=== PATIENT | male | born 1955 | race Caucasian/White ===

== ENCOUNTER 2021-11-29 13:25 | Inpatient (IN) | payer BC ==
[2021-11-29] MEDS ORDERED: Loratadine 10 MG TAB PO PRN (13:51)
[2021-11-29] MEDS ORDERED: Senokot S 8.6-50 MG TAB PO PRN (13:51)
[2021-11-29] MEDS ORDERED: Ondansetron ODT 4 MG TAB PO PRN (13:51)
[2021-11-29] MEDS: METHYLPHENIDATE 20 MG PO SCH ×2 (15:53→21:28)
[2021-11-29] MEDS ORDERED: Propranolol HCl LA 60 MG CAP PO SCH (18:00)
[2021-11-29] MEDS ORDERED: Propranolol HCl LA 80 MG CAP PO SCH (18:00)
[2021-11-29] MEDS: Propranolol HCl LA 80 MG CAP PO SCH (18:20)
[2021-11-29] MEDS: Baclofen 10 MG TAB PO SCH (21:27)
[2021-11-29] MEDS: Famotidine 20 MG TAB PO SCH (21:27)
[2021-11-29] MEDS: Dutasteride 0.5 MG CAP PO SCH (21:27)
[2021-11-29] MEDS: Atorvastatin Calcium 40 MG TAB PO SCH (21:27)
[2021-11-29] MEDS ORDERED: Ondansetron ODT 4 MG TAB SL PRN (23:00)
[2021-11-30 01:00] LABS: SARS-CoV-2 PCR by NAA Not Detected (NotDetected)
[2021-11-30] MEDS: Enoxaparin Sodium 40 MG/0.4 ML SYRINGE SC SCH (08:07)
[2021-11-30] MEDS: Saccharomyces boulardii 250 MG CAP PO SCH (08:09)
[2021-11-30] MEDS: Potassium Chloride 10 MEQ TAB PO SCH (08:09)
[2021-11-30] MEDS: Hydrochlorothiazide 25 MG TAB PO SCH (08:09)
[2021-11-30] MEDS: Famotidine 20 MG TAB PO SCH ×2 (08:09→21:38)
[2021-11-30] MEDS: Tamsulosin HCl 0.4 MG CAP PO SCH (08:09)
[2021-11-30] MEDS: Baclofen 10 MG TAB PO SCH ×2 (08:10→21:38)
[2021-11-30 09:53] LABS: #Basophils 0.1 thou/uL (0.0-0.2); #Eosinphils 0.3 thou/uL (0.0-0.7); #Lymphocytes 1.4 thou/uL (1.20-3.40); #Monocytes 0.9 thou/uL (0.11-0.59); #Neutrophils 5.1 thou/uL (1.40-6.50); %Eosinophils 4.3 % (0.0-10.0); %Lymphocytes 18.3 % (21.0-51.0); %Monocytes 11.1 % (0.0-10.0); %Neutrophils 65.3 % (42.0-75.0); Hemoglobin 12.9 g/dL (14.0-18.0); Mean Corpuscular HGB CONC 32.7 g/dL (32.0-36.0); Mean Corpuscular Hemoglobin 30.5 pg (27.0-31.0); Mean Corpuscular Volume 93.5 fL (78.0-98.0); Mean Platelet Volume 8.8 fL (7.4-10.4); Platelet Count 226 thou/uL (130-400); RBC Distribution Width 12.5 % (11.5-14.5); Red Blood Cell (RBC) Count 4.23 mill/uL (4.70-6.10); White Blood Cell (WBC) Count 7.8 thou/uL (4.8-10.8)
[2021-11-30 10:06] LABS: ALT (SGPT) 35 U/L (8-55); AST (SGOT) 25 U/L (5-34); Albumin 3.5 g/dL (3.4-4.8); Alkaline Phosphatase 58 U/L (40-110); Anion Gap 11 mmol/L (10-20); BUN (Urea Nitrogen) 23 mg/dL (8.4-25.7); Bilirubin, Total 0.4 mg/dL (0.2-1.2); Calc. Creatinine Clearance 79 mL/min (70-130); Calcium 9.3 mg/dL (7.8-10.44); Carbon Dioxide 31 mmol/L (23-31); Chloride 104 mmol/L (98-107); Globulin 3.2 g/dL (2.4-3.5); Glucose 96 mg/dL (80-115); Potassium 3.6 mmol/L (3.5-5.1); Protein, Total 6.7 g/dL (5.8-8.1); Sodium 142 mmol/L (136-145)
[2021-11-30] MEDS: Acetaminophen 325 MG TAB PO PRN (16:47)
[2021-11-30] MEDS: Propranolol HCl LA 80 MG CAP PO SCH (18:29)
[2021-11-30] MEDS: Dutasteride 0.5 MG CAP PO SCH (21:38)
[2021-11-30] MEDS: Atorvastatin Calcium 40 MG TAB PO SCH (21:38)
[2021-12-01] MEDS: Saccharomyces boulardii 250 MG CAP PO SCH (08:16)
[2021-12-01] MEDS: Potassium Chloride 10 MEQ TAB PO SCH (08:16)
[2021-12-01] MEDS: Tamsulosin HCl 0.4 MG CAP PO SCH (08:17)
[2021-12-01] MEDS: Baclofen 10 MG TAB PO SCH ×2 (08:17→20:48)
[2021-12-01] MEDS: Hydrochlorothiazide 25 MG TAB PO SCH (08:18)
[2021-12-01] MEDS: Famotidine 20 MG TAB PO SCH ×2 (08:18→20:48)
[2021-12-01] MEDS: Enoxaparin Sodium 40 MG/0.4 ML SYRINGE SC SCH (08:18)
[2021-12-01] MEDS: Propranolol HCl LA 80 MG CAP PO SCH (18:20)
[2021-12-01] MEDS: Atorvastatin Calcium 40 MG TAB PO SCH (20:48)
[2021-12-01] MEDS: Dutasteride 0.5 MG CAP PO SCH (20:48)
[2021-12-02] MEDS: Baclofen 10 MG TAB PO SCH ×2 (08:51→20:41)
[2021-12-02] MEDS: Hydrochlorothiazide 25 MG TAB PO SCH (08:51)
[2021-12-02] MEDS: Famotidine 20 MG TAB PO SCH ×2 (08:51→20:42)
[2021-12-02] MEDS: Tamsulosin HCl 0.4 MG CAP PO SCH (08:51)
[2021-12-02] MEDS: Saccharomyces boulardii 250 MG CAP PO SCH (08:52)
[2021-12-02] MEDS: Enoxaparin Sodium 40 MG/0.4 ML SYRINGE SC SCH (08:52)
[2021-12-02] MEDS: Potassium Chloride 10 MEQ TAB PO SCH (08:52)
[2021-12-02] MEDS: Propranolol HCl LA 80 MG CAP PO SCH (17:26)
[2021-12-02] MEDS: Dutasteride 0.5 MG CAP PO SCH (20:42)
[2021-12-02] MEDS: Atorvastatin Calcium 40 MG TAB PO SCH (20:42)
[2021-12-03] MEDS: Enoxaparin Sodium 40 MG/0.4 ML SYRINGE SC SCH (08:10)
[2021-12-03] MEDS: Tamsulosin HCl 0.4 MG CAP PO SCH (08:11)
[2021-12-03] MEDS: Saccharomyces boulardii 250 MG CAP PO SCH (08:12)
[2021-12-03] MEDS: Hydrochlorothiazide 25 MG TAB PO SCH (08:12)
[2021-12-03] MEDS: Baclofen 10 MG TAB PO SCH ×2 (08:12→20:30)
[2021-12-03] MEDS: Potassium Chloride 10 MEQ TAB PO SCH (08:13)
[2021-12-03] MEDS: Famotidine 20 MG TAB PO SCH ×2 (08:14→20:31)
[2021-12-03] MEDS: Propranolol HCl LA 80 MG CAP PO SCH (17:08)
[2021-12-03] MEDS: Dutasteride 0.5 MG CAP PO SCH (20:30)
[2021-12-03] MEDS: Atorvastatin Calcium 40 MG TAB PO SCH (20:30)
[2021-12-04] MEDS: Enoxaparin Sodium 40 MG/0.4 ML SYRINGE SC SCH (08:53)
[2021-12-04] MEDS: Tamsulosin HCl 0.4 MG CAP PO SCH (08:53)
[2021-12-04] MEDS: Hydrochlorothiazide 25 MG TAB PO SCH (08:53)
[2021-12-04] MEDS: Potassium Chloride 10 MEQ TAB PO SCH (08:53)
[2021-12-04] MEDS: Saccharomyces boulardii 250 MG CAP PO SCH (08:54)
[2021-12-04] MEDS: Baclofen 10 MG TAB PO SCH ×2 (08:54→20:28)
[2021-12-04] MEDS: Famotidine 20 MG TAB PO SCH ×2 (09:00→20:28)
[2021-12-04] MEDS: Acetaminophen 325 MG TAB PO PRN (16:42)
[2021-12-04] MEDS: Propranolol HCl LA 80 MG CAP PO SCH (17:55)
[2021-12-04] MEDS: Atorvastatin Calcium 40 MG TAB PO SCH (20:28)
[2021-12-04] MEDS: Dutasteride 0.5 MG CAP PO SCH (20:28)
[2021-12-05] MEDS: Saccharomyces boulardii 250 MG CAP PO SCH (08:28)
[2021-12-05] MEDS: Potassium Chloride 10 MEQ TAB PO SCH (08:28)
[2021-12-05] MEDS: Tamsulosin HCl 0.4 MG CAP PO SCH (08:28)
[2021-12-05] MEDS: Enoxaparin Sodium 40 MG/0.4 ML SYRINGE SC SCH (08:28)
[2021-12-05] MEDS: Famotidine 20 MG TAB PO SCH ×2 (08:28→20:48)
[2021-12-05] MEDS: Baclofen 10 MG TAB PO SCH ×2 (08:29→20:48)
[2021-12-05] MEDS: Hydrochlorothiazide 25 MG TAB PO SCH (08:29)
[2021-12-05] MEDS: Propranolol HCl LA 80 MG CAP PO SCH ×2 (17:59→18:02)
[2021-12-05] MEDS: Atorvastatin Calcium 40 MG TAB PO SCH (20:48)
[2021-12-05] MEDS: Dutasteride 0.5 MG CAP PO SCH (20:48)
[2021-12-05] MEDS: Acetaminophen 325 MG TAB PO PRN (20:49)
[2021-12-06] MEDS: Enoxaparin Sodium 40 MG/0.4 ML SYRINGE SC SCH (08:20)
[2021-12-06] MEDS: Hydrochlorothiazide 25 MG TAB PO SCH (08:20)
[2021-12-06] MEDS: Famotidine 20 MG TAB PO SCH ×2 (08:21→20:59)
[2021-12-06] MEDS: Baclofen 10 MG TAB PO SCH ×2 (08:22→20:58)
[2021-12-06] MEDS: Potassium Chloride 10 MEQ TAB PO SCH (08:22)
[2021-12-06] MEDS: Saccharomyces boulardii 250 MG CAP PO SCH (08:22)
[2021-12-06] MEDS: Tamsulosin HCl 0.4 MG CAP PO SCH (08:22)
[2021-12-06] MEDS ORDERED: Ibuprofen 400 MG TAB PO PRN (09:22)
[2021-12-06] MEDS: Acetaminophen 325 MG TAB PO PRN (15:21)
[2021-12-06] MEDS: Ibuprofen 200 MG TAB PO PRN (15:22)
[2021-12-06] MEDS: Propranolol HCl LA 80 MG CAP PO SCH (18:06)
[2021-12-06] MEDS: Atorvastatin Calcium 40 MG TAB PO SCH (20:59)
[2021-12-06] MEDS: Dutasteride 0.5 MG CAP PO SCH (20:59)
[2021-12-07 00:56] LABS: SARS-CoV-2 PCR by NAA Not Detected (NotDetected)
[2021-12-07] MEDS: Hydrochlorothiazide 25 MG TAB PO SCH (08:31)
[2021-12-07] MEDS: Famotidine 20 MG TAB PO SCH ×2 (08:31→21:14)
[2021-12-07] MEDS: Baclofen 10 MG TAB PO SCH ×2 (08:31→21:13)
[2021-12-07] MEDS: Potassium Chloride 10 MEQ TAB PO SCH (08:31)
[2021-12-07] MEDS: Tamsulosin HCl 0.4 MG CAP PO SCH (08:32)
[2021-12-07] MEDS: Saccharomyces boulardii 250 MG CAP PO SCH (08:32)
[2021-12-07] MEDS: Enoxaparin Sodium 40 MG/0.4 ML SYRINGE SC SCH (08:33)
[2021-12-07] MEDS: Propranolol HCl LA 80 MG CAP PO SCH (17:18)
[2021-12-07] MEDS: Atorvastatin Calcium 40 MG TAB PO SCH (21:14)
[2021-12-07] MEDS: Dutasteride 0.5 MG CAP PO SCH (21:14)
[2021-12-08] MEDS: Potassium Chloride 10 MEQ TAB PO SCH (10:09)
[2021-12-08] MEDS: Saccharomyces boulardii 250 MG CAP PO SCH (10:09)
[2021-12-08] MEDS: Tamsulosin HCl 0.4 MG CAP PO SCH (10:10)
[2021-12-08] MEDS: Baclofen 10 MG TAB PO SCH ×2 (10:11→21:39)
[2021-12-08] MEDS: Famotidine 20 MG TAB PO SCH ×2 (10:11→21:39)
[2021-12-08] MEDS: Hydrochlorothiazide 25 MG TAB PO SCH (10:12)
[2021-12-08] MEDS: Enoxaparin Sodium 40 MG/0.4 ML SYRINGE SC SCH (10:12)
[2021-12-08] MEDS: Ibuprofen 200 MG TAB PO PRN (10:13)
[2021-12-08] MEDS: Propranolol HCl LA 80 MG CAP PO SCH (17:14)
[2021-12-08] MEDS: Dutasteride 0.5 MG CAP PO SCH (21:39)
[2021-12-08] MEDS: Atorvastatin Calcium 40 MG TAB PO SCH (21:39)
[2021-12-09 06:12] LABS: #Eosinphils 0.3 thou/uL (0.0-0.7); #Lymphocytes 1.7 thou/uL (1.20-3.40); #Monocytes 0.7 thou/uL (0.11-0.59); #Neutrophils 3.9 thou/uL (1.40-6.50); %Basophils 0.5 % (0.0-1.0); %Eosinophils 4.7 % (0.0-10.0); %Lymphocytes 25.7 % (21.0-51.0); %Monocytes 10.1 % (0.0-10.0); %Neutrophils 58.9 % (42.0-75.0); Hemoglobin 13.5 g/dL (14.0-18.0); Mean Corpuscular HGB CONC 33.7 g/dL (32.0-36.0); Mean Corpuscular Hemoglobin 30.7 pg (27.0-31.0); Mean Corpuscular Volume 91.2 fL (78.0-98.0); Mean Platelet Volume 8.3 fL (7.4-10.4); Platelet Count 191 thou/uL (130-400); RBC Distribution Width 12.5 % (11.5-14.5); Red Blood Cell (RBC) Count 4.38 mill/uL (4.70-6.10); White Blood Cell (WBC) Count 6.6 thou/uL (4.8-10.8)
[2021-12-09 06:26] LABS: Anion Gap 13 mmol/L (10-20); BUN (Urea Nitrogen) 29 mg/dL (8.4-25.7); Calc. Creatinine Clearance 74 mL/min (70-130); Calcium 9.1 mg/dL (7.8-10.44); Carbon Dioxide 28 mmol/L (23-31); Chloride 104 mmol/L (98-107); Glucose 87 mg/dL (80-115); Potassium 3.7 mmol/L (3.5-5.1); Sodium 141 mmol/L (136-145)
[2021-12-09] MEDS: Hydrochlorothiazide 25 MG TAB PO SCH (09:06)
[2021-12-09] MEDS: Enoxaparin Sodium 40 MG/0.4 ML SYRINGE SC SCH (09:06)
[2021-12-09] MEDS: Potassium Chloride 10 MEQ TAB PO SCH (09:06)
[2021-12-09] MEDS: Saccharomyces boulardii 250 MG CAP PO SCH (09:07)
[2021-12-09] MEDS: Tamsulosin HCl 0.4 MG CAP PO SCH (09:07)
[2021-12-09] MEDS: Famotidine 20 MG TAB PO SCH ×2 (09:07→21:32)
[2021-12-09] MEDS: Baclofen 10 MG TAB PO SCH ×2 (09:07→21:32)
[2021-12-09] MEDS: Propranolol HCl LA 80 MG CAP PO SCH (17:38)
[2021-12-09] MEDS: Acetaminophen 325 MG TAB PO PRN (19:26)
[2021-12-09] MEDS: Atorvastatin Calcium 40 MG TAB PO SCH (21:32)
[2021-12-09] MEDS: Dutasteride 0.5 MG CAP PO SCH (21:32)
[2021-12-10] MEDS: Enoxaparin Sodium 40 MG/0.4 ML SYRINGE SC SCH (09:20)
[2021-12-10] MEDS: Saccharomyces boulardii 250 MG CAP PO SCH (09:20)
[2021-12-10] MEDS: Hydrochlorothiazide 25 MG TAB PO SCH (09:20)
[2021-12-10] MEDS: Famotidine 20 MG TAB PO SCH ×2 (09:21→21:09)
[2021-12-10] MEDS: Baclofen 10 MG TAB PO SCH ×2 (09:21→21:09)
[2021-12-10] MEDS: Tamsulosin HCl 0.4 MG CAP PO SCH (09:21)
[2021-12-10] MEDS: Potassium Chloride 10 MEQ TAB PO SCH (09:21)
[2021-12-10] MEDS: Propranolol HCl LA 80 MG CAP PO SCH (17:05)
[2021-12-10] MEDS: Atorvastatin Calcium 40 MG TAB PO SCH (21:09)
[2021-12-10] MEDS: Dutasteride 0.5 MG CAP PO SCH (21:09)
[2021-12-11] MEDS: Enoxaparin Sodium 40 MG/0.4 ML SYRINGE SC SCH (09:15)
[2021-12-11] MEDS: Baclofen 10 MG TAB PO SCH ×2 (09:16→20:34)
[2021-12-11] MEDS: Hydrochlorothiazide 25 MG TAB PO SCH (09:16)
[2021-12-11] MEDS: Saccharomyces boulardii 250 MG CAP PO SCH (09:16)
[2021-12-11] MEDS: Potassium Chloride 10 MEQ TAB PO SCH (09:16)
[2021-12-11] MEDS: Famotidine 20 MG TAB PO SCH ×2 (09:17→20:35)
[2021-12-11] MEDS: Tamsulosin HCl 0.4 MG CAP PO SCH (09:17)
[2021-12-11] MEDS: Propranolol HCl LA 80 MG CAP PO SCH (17:47)
[2021-12-11] MEDS: Dutasteride 0.5 MG CAP PO SCH (20:36)
[2021-12-11] MEDS: Atorvastatin Calcium 40 MG TAB PO SCH (20:36)
[2021-12-12] MEDS: Enoxaparin Sodium 40 MG/0.4 ML SYRINGE SC SCH (08:39)
[2021-12-12] MEDS: Saccharomyces boulardii 250 MG CAP PO SCH (08:39)
[2021-12-12] MEDS: Tamsulosin HCl 0.4 MG CAP PO SCH (08:39)
[2021-12-12] MEDS: Baclofen 10 MG TAB PO SCH ×2 (08:39→21:03)
[2021-12-12] MEDS: Hydrochlorothiazide 25 MG TAB PO SCH (08:40)
[2021-12-12] MEDS: Potassium Chloride 10 MEQ TAB PO SCH (08:40)
[2021-12-12] MEDS: Famotidine 20 MG TAB PO SCH ×2 (08:40→21:02)
[2021-12-12] MEDS: Propranolol HCl LA 80 MG CAP PO SCH (17:58)
[2021-12-12] MEDS: Atorvastatin Calcium 40 MG TAB PO SCH (21:02)
[2021-12-12] MEDS: Dutasteride 0.5 MG CAP PO SCH (21:03)
[2021-12-13] MEDS: Enoxaparin Sodium 40 MG/0.4 ML SYRINGE SC SCH (09:09)
[2021-12-13] MEDS: Acetaminophen 325 MG TAB PO PRN ×2 (09:09→21:08)
[2021-12-13] MEDS: Hydrochlorothiazide 25 MG TAB PO SCH (09:10)
[2021-12-13] MEDS: Tamsulosin HCl 0.4 MG CAP PO SCH (09:10)
[2021-12-13] MEDS: Baclofen 10 MG TAB PO SCH ×2 (09:10→21:02)
[2021-12-13] MEDS: Potassium Chloride 10 MEQ TAB PO SCH (09:10)
[2021-12-13] MEDS: Famotidine 20 MG TAB PO SCH ×2 (09:10→21:02)
[2021-12-13] MEDS: Saccharomyces boulardii 250 MG CAP PO SCH (09:10)
[2021-12-13] MEDS: Propranolol HCl LA 80 MG CAP PO SCH (17:46)
[2021-12-13] MEDS: Dutasteride 0.5 MG CAP PO SCH (21:02)
[2021-12-13] MEDS: Atorvastatin Calcium 40 MG TAB PO SCH (21:03)
[2021-12-14 00:24] LABS: SARS-CoV-2 PCR by NAA Not Detected (NotDetected)
[2021-12-14] MEDS: Enoxaparin Sodium 40 MG/0.4 ML SYRINGE SC SCH (08:35)
[2021-12-14] MEDS: Tamsulosin HCl 0.4 MG CAP PO SCH (08:36)
[2021-12-14] MEDS: Famotidine 20 MG TAB PO SCH ×2 (08:36→21:00)
[2021-12-14] MEDS: Baclofen 10 MG TAB PO SCH ×2 (08:36→20:59)
[2021-12-14] MEDS: Potassium Chloride 10 MEQ TAB PO SCH (08:36)
[2021-12-14] MEDS: Hydrochlorothiazide 25 MG TAB PO SCH (08:37)
[2021-12-14] MEDS: Saccharomyces boulardii 250 MG CAP PO SCH (08:47)
[2021-12-14] MEDS: Propranolol HCl LA 80 MG CAP PO SCH (17:10)
[2021-12-14] MEDS: Dutasteride 0.5 MG CAP PO SCH (20:59)
[2021-12-14] MEDS: Atorvastatin Calcium 40 MG TAB PO SCH (21:00)
[2021-12-15] MEDS: Enoxaparin Sodium 40 MG/0.4 ML SYRINGE SC SCH (08:45)
[2021-12-15] MEDS: Saccharomyces boulardii 250 MG CAP PO SCH (08:47)
[2021-12-15] MEDS: Famotidine 20 MG TAB PO SCH ×2 (08:47→20:33)
[2021-12-15] MEDS: Hydrochlorothiazide 25 MG TAB PO SCH (08:47)
[2021-12-15] MEDS: Potassium Chloride 10 MEQ TAB PO SCH (08:47)
[2021-12-15] MEDS: Tamsulosin HCl 0.4 MG CAP PO SCH (08:48)
[2021-12-15] MEDS: Baclofen 10 MG TAB PO SCH ×2 (08:48→20:33)
[2021-12-15] MEDS: Propranolol HCl LA 80 MG CAP PO SCH (18:09)
[2021-12-15] MEDS: Dutasteride 0.5 MG CAP PO SCH (20:33)
[2021-12-15] MEDS: Atorvastatin Calcium 40 MG TAB PO SCH (20:33)
[2021-12-15] MEDS: Acetaminophen 325 MG TAB PO PRN (22:30)
[2021-12-16] MEDS: Ibuprofen 200 MG TAB PO PRN (08:59)
[2021-12-16] MEDS: Enoxaparin Sodium 40 MG/0.4 ML SYRINGE SC SCH (09:03)
[2021-12-16] MEDS: Saccharomyces boulardii 250 MG CAP PO SCH (09:04)
[2021-12-16] MEDS: Potassium Chloride 10 MEQ TAB PO SCH (09:04)
[2021-12-16] MEDS: Hydrochlorothiazide 25 MG TAB PO SCH (09:04)
[2021-12-16] MEDS: Famotidine 20 MG TAB PO SCH ×2 (09:07→20:53)
[2021-12-16] MEDS: Tamsulosin HCl 0.4 MG CAP PO SCH (09:07)
[2021-12-16] MEDS: Baclofen 10 MG TAB PO SCH ×2 (09:07→20:53)
[2021-12-16] MEDS: Propranolol HCl LA 80 MG CAP PO SCH (17:33)
[2021-12-16] MEDS: Dutasteride 0.5 MG CAP PO SCH (20:53)
[2021-12-16] MEDS: Atorvastatin Calcium 40 MG TAB PO SCH (20:54)
[2021-12-17 05:41] VITALS: BMI 24.7
[2021-12-17] MEDS: Enoxaparin Sodium 40 MG/0.4 ML SYRINGE SC SCH (08:46)
[2021-12-17] MEDS: Hydrochlorothiazide 25 MG TAB PO SCH (08:47)
[2021-12-17] MEDS: Famotidine 20 MG TAB PO SCH ×2 (08:47→21:32)
[2021-12-17] MEDS: Baclofen 10 MG TAB PO SCH ×2 (08:47→21:33)
[2021-12-17] MEDS: Tamsulosin HCl 0.4 MG CAP PO SCH (08:48)
[2021-12-17] MEDS: Potassium Chloride 10 MEQ TAB PO SCH (08:48)
[2021-12-17] MEDS: Saccharomyces boulardii 250 MG CAP PO SCH (08:53)
[2021-12-17] MEDS: Propranolol HCl LA 80 MG CAP PO SCH (17:14)
[2021-12-17] MEDS: Atorvastatin Calcium 40 MG TAB PO SCH (21:33)
[2021-12-17] MEDS: Dutasteride 0.5 MG CAP PO SCH (21:33)
[2021-12-18 06:20] LABS: #Basophils 0.1 thou/uL (0.0-0.2); #Eosinphils 0.3 thou/uL (0.0-0.7); #Lymphocytes 1.9 thou/uL (1.20-3.40); #Monocytes 0.9 thou/uL (0.11-0.59); #Neutrophils 3.6 thou/uL (1.40-6.50); %Basophils 0.8 % (0.0-1.0); %Lymphocytes 28.3 % (21.0-51.0); %Monocytes 13.5 % (0.0-10.0); %Neutrophils 53.4 % (42.0-75.0); Hemoglobin 12.6 g/dL (14.0-18.0); Mean Corpuscular HGB CONC 32.9 g/dL (32.0-36.0); Mean Corpuscular Hemoglobin 30.5 pg (27.0-31.0); Mean Corpuscular Volume 92.8 fL (78.0-98.0); Mean Platelet Volume 9.1 fL (7.4-10.4); Platelet Count 200 thou/uL (130-400); RBC Distribution Width 12.8 % (11.5-14.5); Red Blood Cell (RBC) Count 4.14 mill/uL (4.70-6.10); White Blood Cell (WBC) Count 6.8 thou/uL (4.8-10.8)
[2021-12-18 06:35] LABS: Anion Gap 11 mmol/L (10-20); BUN (Urea Nitrogen) 32 mg/dL (8.4-25.7); Calc. Creatinine Clearance 90 mL/min (70-130); Carbon Dioxide 27 mmol/L (23-31); Chloride 106 mmol/L (98-107); Glucose 86 mg/dL (80-115); Potassium 3.4 mmol/L (3.5-5.1); Sodium 141 mmol/L (136-145)
[2021-12-18] MEDS: Saccharomyces boulardii 250 MG CAP PO SCH (08:33)
[2021-12-18] MEDS: Tamsulosin HCl 0.4 MG CAP PO SCH (08:33)
[2021-12-18] MEDS: Baclofen 10 MG TAB PO SCH ×2 (08:33→20:47)
[2021-12-18] MEDS: Enoxaparin Sodium 40 MG/0.4 ML SYRINGE SC SCH (08:34)
[2021-12-18] MEDS: Hydrochlorothiazide 25 MG TAB PO SCH (08:34)
[2021-12-18] MEDS: Potassium Chloride 10 MEQ TAB PO SCH (08:35)
[2021-12-18] MEDS: Famotidine 20 MG TAB PO SCH ×2 (08:35→20:47)
[2021-12-18] MEDS: Propranolol HCl LA 80 MG CAP PO SCH (17:29)
[2021-12-18] MEDS: Atorvastatin Calcium 40 MG TAB PO SCH (20:47)
[2021-12-18] MEDS: Dutasteride 0.5 MG CAP PO SCH (20:47)
[2021-12-19] MEDS: Potassium Chloride 10 MEQ TAB PO SCH (08:53)
[2021-12-19] MEDS: Enoxaparin Sodium 40 MG/0.4 ML SYRINGE SC SCH (08:53)
[2021-12-19] MEDS: Tamsulosin HCl 0.4 MG CAP PO SCH (08:53)
[2021-12-19] MEDS: Hydrochlorothiazide 25 MG TAB PO SCH (08:54)
[2021-12-19] MEDS: Baclofen 10 MG TAB PO SCH (08:54)
[2021-12-19] MEDS: Saccharomyces boulardii 250 MG CAP PO SCH (08:54)
[2021-12-19] MEDS: Famotidine 20 MG TAB PO SCH (08:55)
[2021-12-19 10:20] VITALS: BP 117/64; TEMP 97.8
== END 2021-12-19 14:52 | disposition home or self-care (01) | DRG 948 ==
LOC: NAV ACUTE 13:25
PROVIDERS: ADMIT Family Medicine; ATTEND Family Medicine
DX: R53.81 Other malaise (principal); I69.351 Hemiplegia and hemiparesis following cerebral infarction affecting right dominant side; S81.801D Unspecified open wound, right lower leg, subsequent encounter; Z20.822 Contact with and (suspected) exposure to COVID-19; I10 Essential (primary) hypertension; E78.5 Hyperlipidemia, unspecified; M62.838 Other muscle spasm; M16.12 Unilateral primary osteoarthritis, left hip; N40.0 Benign prostatic hyperplasia without lower urinary tract symptoms; F90.9 Attention-deficit hyperactivity disorder, unspecified type; Z87.891 Personal history of nicotine dependence; Z79.899 Other long term (current) drug therapy; Z91.048 Other nonmedicinal substance allergy status
CPT/HCPCS: 36415; 80048; 80053; 85025; J1650; U0003; U0005